=== PATIENT | male | born 1980 | race Hispanic/Latino ===

== ENCOUNTER 2019-10-22 09:08 | Emergency (ER) | payer SELFPAY ==
[2019-10-22] MEDS ORDERED: FAMCICLOVIR250 MG PO (09:47)
[2019-10-22 10:13] VITALS: BP 175/120
== END 2019-10-22 10:13 | disposition home or self-care (01) | DRG 728 ==
LOC: ED 09:08
DX: A60.01 Herpesviral infection of penis (principal)

== ENCOUNTER 2022-09-10 09:22 | Inpatient (IN) | payer SELFPAY ==
[2022-09-10] VITALS (18 sets, daily range): BP systolic 131–171; BP diastolic 80–102
[~2022-09-10] VITALS: Ht 172.7 cm; Wt 103.0 kg
[~2022-09-10 09:22] MED LIST: FAMCICLOVIR250 MG PO
--- NOTE | 2022-09-10 09:46 | NUR ---
PT TO ROOM WITH STEADY GAIT
--- NOTE | 2022-09-10 10:09 | NUR ---
PATIENT RESTING IN BED WATCHING TV. NO DISTRESS NOTED.
[2022-09-10 10:17] LABS: URINE BILIRUBIN - DIPSTICK NEGATIVE (NEGATIVE); URINE BLOOD DIPSTICK LARGE (NEGATIVE); URINE COLOR RED; URINE GLUCOSE - DIPSTICK NEGATIVE (NEGATIVE); URINE KETONE TRACE mg/dL (NEGATIVE); URINE LEUK ESTERASE TRACE (NEGATIVE); URINE PH 5.5 (4.5-8.0); URINE PROTEIN - DIPSTICK >=300 mg/dL (NEG-TRACE); URINE SPECIFIC GRAVITY 1.015; URINE UROBILINOGEN - DIPSTICK 0.2 E.U./dL (0.2)
[2022-09-10 10:31] LABS: URINE NITRITE - DIPSTICK POSITIVE (Negative)
[2022-09-10 10:34] LABS: URINE RBC >100 RBC/hpf (0-5); URINE WBC 0-2 WBC/hpf (0-5)
[2022-09-10 11:27] LABS: HEMATOCRIT 38.6 % (39.0-50.0); IMMATURE GRANULOCYTES 0.9 % (0.0-5.0); MEAN CELL VOLUME 87.1 fL CALC (80.0-100.0); MEAN CORPUSCULAR HGB 29.3 pG CALC (26.0-32.0); MEAN CORPUSCULAR HGB CONC 33.7 g/dL CAL (32.0-36.0); NEUT# 14.5 thou/uL (1.82-7.42); RED BLOOD COUNT 4.43 mill/uL (4.70-6.10); RED CELL DISTRI WIDTH 13.6 % (11.5-15.5)
[2022-09-10 11:55] LABS: ALBUMIN 4.3 g/dL (3.2-5.0); ALKALINE PHOSPHATASE 104 u/l (38-126); ANION GAP 29 (6-22 (CALC)); BILIRUBIN, TOTAL 0.6 mg/dL (0.0-1.4); CARBON DIOXIDE 11 mmol/l (22-30); CHLORIDE 95 mmol/l (95-108); LIPASE 160 u/l (23-300); POTASSIUM 3.8 mmol/l (3.5-5.1); SGOT/AST 13 u/l (17-59); SODIUM 132 mmol/l (137-146); TOTAL PROTEIN 7.4 g/dL (6.3-8.2)
[2022-09-10 12:02] LABS: BUN/CREATININE RATIO 7 (12-20 (CALC))
[2022-09-10 12:03] LABS: GFR FOR AFR.AMER. 4 ML/MIN (>=60 (CALC)); GFR OTHER RACES 4 ML/MIN (>=60 (CALC))
[2022-09-10 12:04] LABS: BUN 107 mg/dL (9-20)
--- NOTE | 2022-09-10 14:03 | NUR ---
Reassessment of patient completed. No distress noted.
--- NOTE | 2022-09-10 15:05 | NUR ---
JUST ARRIVED AND IS AT BEDSIDE. SHE REFUSES ADMITTING AND TRANSFERRING PATIENT UPSRAIRS UNTIL PROVIDER EXPLAINS REASON FOR ADMISSION. PROVDIER NOTIFIED
--- NOTE | 2022-09-10 15:49 | NUR ---
PT ARRIVED TO FLOOR VIA STRETCHER ACCOMPAINED BY ER STAFF AND . PT ALERT AND ORIENTED X4. NO APPARENT DISTRESS NOTED. PT SPEAKS JAPANESE AND [place]BOD[place]. AMBULATORY WITH STEADY GAIT. PT ABLE TO MAKE NEEDS KNOWN. C/O RUQ PAIN 10/10, HR SUSTAINING IN 120S, NOTIFIED DR. PANTOJA. DISCUSSED POC AND SAFETY PRECAUTIONS. PT VERBALIZED UNDERSTANDING. ORIENTED TO ROOM AND CALL LIGHT SYSTEM. CALL LIGHT WITHIN REACH. WILL CONTINUE TO MONITOR AND MEDICATE WHEN MEDICATIONS PROFILED.
--- NOTE | 2022-09-10 15:57 | NUR ---
BEDSIDE SHIFT REPORT GIVEN TO WHIT. PATIENT SETTLED IN BED WITH AT BEDSIDE.
--- NOTE | 2022-09-10 19:00 | NUR ---
RECEIVED REPORT FROM CARLOS AMADO.
--- NOTE | 2022-09-10 20:00 | NUR ---
PT SITTING ON BED HIGH FOWLERS; A&O X3. EVEN AND UNLABORED RESPIRATIONS: CLEAR LUNG SOUNDS UPON AUSCULTATION. TELEMETRY IN PLACE. IV SITE SAFETY AND PATENT. ACTIVE BOWEL SOUNDS X4 QUADRANTS. NO DISTRESS NOTED. EMPTIED URINAL CONTENTS: 175 MLS OF DARK [place], CLEAR URINE. SAFETY PRECAUTIONS IN PLACE WITH CALL LIGHT IN REACH.
[2022-09-11] VITALS (9 sets, daily range): BP systolic 108–155; BP diastolic 71–90
--- NOTE | 2022-09-11 | NUR ---
PT RESTING WITH EYES CLOSED. NO DISTRESS OR PAIN NOTED. IV SITE HEALTHY AND PATENT, INFUSING FLUIDS PER EMAR. SAFETY PRECAUTIONS IN PLACE WITH CALL LIGHT IN REACH.
--- NOTE | 2022-09-11 03:02 | NUR ---
PT C/O PAIN ON RUQ, LEVEL 8/10; ADMINISTERED PAIN MED PER EMAR. SAFETY PRECAUTIONS IN PLACE. CALL LIGHT IN REACH.
--- NOTE | 2022-09-11 03:55 | NUR ---
PT SITTING ON BED LOW FOWLERS. NO DISTRESS NOTED. SERVICE UNIT OPERATOR IN ROOM DRAWING BLOOD AT THIS TIME. IV SITE HEALTHY AND PATENT, INFUSING FLUIDS PER ORDER. SAFETY PRECAUTIONS IN PLACE WITH CALL LIGHT IN REACH.
[2022-09-11 05:52] LABS: MEAN CELL VOLUME 87.5 fL CALC (80.0-100.0); MEAN CORPUSCULAR HGB 29.4 pG CALC (26.0-32.0); MEAN CORPUSCULAR HGB CONC 33.6 g/dL CAL (32.0-36.0); RED BLOOD COUNT 3.67 mill/uL (4.70-6.10); RED CELL DISTRI WIDTH 13.6 % (11.5-15.5)
[2022-09-11 05:57] LABS: HEMATOCRIT 32.1 % (39.0-50.0); HEMOGLOBIN 10.8 g/dl (14.0-18.0)
[2022-09-11 06:18] LABS: ALBUMIN 3.9 g/dL (3.2-5.0); POTASSIUM 4.1 mmol/l (3.5-5.1)
[2022-09-11 06:31] LABS: CREATININE 16.1 mg/dL (0.7-1.3)
--- NOTE | 2022-09-11 07:26 | NUR ---
PT IS RESTING IN HIGH FOWLERS POSITION. A/OX3 ASSESSMENT AND VS COMPLETED. RESPIRATIONS UNLBAORED. IV SITE NOTED 20G RAC NS INFUSING AT 100. BOWEL SOUNDS ACTIVE.PT C/O PAIN TO BE MEDICATED. KIDNEY PROVIDER TO BE CALLED FOR UPDATE. PT IS AWARE NEED OF DIALYSIS. ALL SAFETY PRECAUTIONS IN PLACE CALL LIGHT IN REACH.
--- NOTE | 2022-09-11 12:00 | NUR ---
PT RESTING IN HIGH FOWLERS POSITION. PT C/O PAIN MEDICATION PROVIDED FOR PT.
--- NOTE | 2022-09-11 16:11 | NUR ---
PT RESTING IN HIGH FOWLERS POSITION. PT DENIES ADDITIONAL NEEDS OTHER THAN PAIN MANAGEMENT.
--- NOTE | 2022-09-11 19:00 | NUR ---
RECEIVED REPORT FROM TIMOTEO GOSS.
--- NOTE | 2022-09-11 20:00 | NUR ---
PT SITTING ON BED HIGH FOWLERS: A&O X3. VISITORS X2 AT BEDSIDE. EVEN AND UNLABORED RESPIRATIONS; CLEAR LUNG SOUNDS UPON AUSCULTATION. TELEMETRY IN PLACE WITH LAST READING ST-104. ACTIVE BOWEL SOUNDS TO RUQ, RLQ; HYPOACTIVE TO LUQ,LLQ. IV SITE HEALTHY AND PATENT. PT DENIES PAIN AT THIS TIME. SAFETY PRECAUTIONS IN PLACE WITH CALL LIGHT IN REACH.
[2022-09-12] VITALS: BP 130/80
--- NOTE | 2022-09-12 | NUR ---
PT RESTING WITH EYES CLOSED. NO DISTRESS NOTED. IV SITE HEALTHY AND PATENT, INFUSING FLUIDS PER ORDER. SAFETY PRECAUTIONS IN PLACE WITH CALL LIGHT IN REACH.
--- NOTE | 2022-09-12 03:36 | NUR ---
PT SITTING ON BED LOW FOWLERS POSITION WATCHING TV. NO DISTRESS NOTED. PT DENIES PAIN AT THIS TIME. EMPTIED URINAL CONTENTS: 200 MLS OF BLOODY URINE. PT DENIES PAIN ON URINATION. HANGING NEW BAG OF FLUIDS, IV SITE HEALTHY AND PATENT. SAFETY PRECAUTIONS IN PLACE WITH CALL LIGHT IN REACH.
[2022-09-12 04:00] VITALS: BP 150/89
[2022-09-12 04:58] VITALS: BP 150/89
[2022-09-12 05:51] LABS: HEMATOCRIT 29.8 % (39.0-50.0); HEMOGLOBIN 10.1 g/dl (14.0-18.0); MEAN CELL VOLUME 87.4 fL CALC (80.0-100.0); MEAN CORPUSCULAR HGB 29.6 pG CALC (26.0-32.0); MEAN CORPUSCULAR HGB CONC 33.9 g/dL CAL (32.0-36.0); RED BLOOD COUNT 3.41 mill/uL (4.70-6.10); RED CELL DISTRI WIDTH 13.7 % (11.5-15.5)
[2022-09-12 06:07] LABS: POTASSIUM 3.8 mmol/l (3.5-5.1)
[2022-09-12 06:29] LABS: CREATININE 15.1 mg/dL (0.7-1.3)
[2022-09-12 07:01] VITALS: BP 117/67
--- NOTE | 2022-09-12 08:00 | NUR ---
RECEIVED REPORT FROM [employer]DER[employer]WICH HAND. BRYNN Corado&[id number], PT IS ABLE TO MAKE NEEDS KNOWN. ASSESSMENT COMPLETED. THERE IS NO SIGNS OF EDEMA PRESENT AT THIS TIME. PT IS ON ROOM AIR. PT RESTING IN BED IN A LOW SEMI-JESSICA'S POSITION. NO SINGS OF DISTRESS NOTED NOR VERBALIZED AT THIS TIME.
--- NOTE | 2022-09-12 08:25 | NUR ---
Dr. Recio notified patient peg tube feeding residual this morning of 50ml. Orders recieved to hold tube feeding for now.
[2022-09-12 10:58] VITALS: BP 124/70
[2022-09-12] MEDS ORDERED: PHOSLO667 MG PO (11:56)
[2022-09-12] MEDS ORDERED: AMLODIPINE BESYL5 MG PO (11:56)
[2022-09-12] MEDS ORDERED: SODIUM BICAR650 MG PO (11:56)
[2022-09-12] MEDS ORDERED: OMNICEF300 MG PO (12:00)
--- NOTE | 2022-09-12 12:00 | NUR ---
PATIENT RESTING IN BED IN SEMI-JESSICA'S POSITION, AWAKE WATCHING TV. PATIENT DENIES AY DISCOMFORT AT THIS TIME. PT ASKED FOR HIS LABS TO PRINTED FOR HIM BEFORE HE WAS D/C, WILL PRINT THEM WITH D/C PAPER WORK.
--- NOTE | 2022-09-12 14:12 | NUR ---
Discharge instructions given. Patient verbalizes understanding of same. Discharged in stable condition via Ambulatory to Home with staff. All belongings sent with pt.
== END 2022-09-12 14:12 | disposition home or self-care (01) | DRG 683 ==
LOC: ED 09:22 → ED-I 11:08 → ED 11:08 → ED-I 13:17 → ED 13:30 → MS2 13:31
PROVIDERS: Emergency Medicine; Internal Medicine Nephrology; ADMIT Internal Medicine; ATTEND Internal Medicine
DX: N17.9 Acute kidney failure, unspecified (principal); E87.1 Hypo-osmolality and hyponatremia; Q61.2 Polycystic kidney, adult type; E87.20 Acidosis, unspecified; I12.0 Hypertensive chronic kidney disease with stage 5 chronic kidney disease or end stage renal disease; N18.5 Chronic kidney disease, stage 5; E86.9 Volume depletion, unspecified; N25.81 Secondary hyperparathyroidism of renal origin; E83.51 Hypocalcemia

== ENCOUNTER 2023-06-15 07:32 | Inpatient (IN) | payer SELFPAY ==
[~2023-06-15] VITALS: Ht 172.7 cm; Wt 90.6 kg
[2023-06-15] VITALS (22 sets, daily range): BP systolic 105–143; BP diastolic 66–93
[~2023-06-15 07:32] MED LIST changes: +AMLODIPINE BESYL5 MG PO; +OMNICEF300 MG PO; +PHOSLO667 MG PO; +SODIUM BICAR650 MG PO
[2023-06-15 08:20] LABS: BASO% 0.2 % (0-3); EOS% 0.1 % (0-8); HEMATOCRIT 31.6 % (39.0-50.0); HEMOGLOBIN 10.5 g/dl (14.0-18.0); IMMATURE GRANULOCYTES 0.7 % (0.0-5.0); LYMPH% 4.8 % (15-41); MEAN CELL VOLUME 83.2 fL CALC (80.0-100.0); MEAN CORPUSCULAR HGB 27.6 pG CALC (26.0-32.0); MEAN CORPUSCULAR HGB CONC 33.2 g/dL CAL (32.0-36.0); MONO% 5.1 % (2-13); NEUT# 10.24 thou/uL (1.82-7.42); NEUT% 89.1 % (42-76); RED BLOOD COUNT 3.8 mill/uL (4.70-6.10); RED CELL DISTRI WIDTH 13.9 % (11.5-15.5)
[2023-06-15 08:26] LABS: BILIRUBIN, TOTAL 0.5 mg/dL (0.2-1.3); POTASSIUM 3.4 mmol/l (3.5-5.1); TOTAL PROTEIN 8.4 g/dL (6.3-8.2)
[2023-06-15 08:36] LABS: ALBUMIN 4.5 g/dL (3.2-5.0); CREATININE 19.8 mg/dL (0.7-1.3)
[2023-06-15 09:34] LABS: URINE BLOOD DIPSTICK Large (NEGATIVE); URINE GLUCOSE - DIPSTICK 100 mg/dL (NEGATIVE); URINE KETONE 15 mg/dL (NEGATIVE); URINE LEUK ESTERASE Trace (NEGATIVE); URINE NITRITE - DIPSTICK Negative (Negative); URINE PH 5.5 (4.5-8.0); URINE PROTEIN - DIPSTICK >=300 mg/dL (NEG-TRACE); URINE SPECIFIC GRAVITY 1.015; URINE UROBILINOGEN - DIPSTICK 0.2 E.U./dL (0.2)
[2023-06-15 09:35] LABS: URINE COLOR Red; URINE RBC TNTC RBC/hpf (0-5)
[2023-06-15 09:37] LABS: URINE BACTERIA FEW hpf
[2023-06-16] VITALS (10 sets, daily range): BP systolic 118–137; BP diastolic 78–94
[2023-06-16 05:31] LABS: POTASSIUM 3.6 mmol/l (3.5-5.1)
[2023-06-16 05:42] LABS: CREATININE 19.3 mg/dL (0.7-1.3)
[2023-06-16 14:39] LABS: ALBUMIN 4.1 g/dL (3.2-5.0); BILIRUBIN, TOTAL 0.5 mg/dL (0.2-1.3); POTASSIUM 3.2 mmol/l (3.5-5.1)
[2023-06-16 14:52] LABS: CREATININE 18.6 mg/dL (0.7-1.3)
[2023-06-17 00:08] VITALS: BP 137/85
[2023-06-17 00:23] VITALS: BP 137/85
[2023-06-17 04:24] VITALS: BP 143/88
[2023-06-17 04:52] VITALS: BP 143/88
[2023-06-17 06:20] LABS: BASO% 0.5 % (0-3); EOS% 1.6 % (0-8); HEMATOCRIT 31.5 % (39.0-50.0); HEMOGLOBIN 10.4 g/dl (14.0-18.0); IMMATURE GRANULOCYTES 0.2 % (0.0-5.0); MEAN CELL VOLUME 83.1 fL CALC (80.0-100.0); MEAN CORPUSCULAR HGB 27.4 pG CALC (26.0-32.0); MONO% 8.3 % (2-13); NEUT# 7.12 thou/uL (1.82-7.42); NEUT% 74.4 % (42-76); RED BLOOD COUNT 3.79 mill/uL (4.70-6.10); RED CELL DISTRI WIDTH 13.9 % (11.5-15.5)
[2023-06-17 06:27] LABS: ALBUMIN 3.9 g/dL (3.2-5.0)
[2023-06-17 06:28] LABS: BILIRUBIN, TOTAL 0.5 mg/dL (0.2-1.3); MAGNESIUM 2.2 mg/dL (1.6-2.3); TOTAL PROTEIN 6.8 g/dL (6.3-8.2)
[2023-06-17 07:05] LABS: CREATININE 18.2 mg/dL (0.7-1.3)
[2023-06-17 07:06] LABS: CREATININE 18.3 mg/dL (0.7-1.3)
[2023-06-17 07:32] VITALS: BP 136/78
[2023-06-17] MEDS ORDERED: ANTACID750 M1 PO (13:07)
[2023-06-17] MEDS ORDERED: SODIUM BICAR650 MG PO (13:07)
[2023-06-17] MEDS ORDERED: PHOSLO667 MG PO (13:07)
[2023-06-17] MEDS ORDERED: KLOR-CON M2020 MEQ PO (13:07)
[2023-06-17 13:35] VITALS: BP 132/70
== END 2023-06-17 15:10 | disposition home or self-care (01) | DRG 683 ==
LOC: ED 07:32 → ED-I 10:20 → ED 10:47 → MS2 10:48
PROVIDERS: Family Medicine; Internal Medicine Nephrology; Nurse Practitioner Family; ADMIT Student in an Organized Health Care Education/Training Program; ATTEND Student in an Organized Health Care Education/Training Program
DX: N17.9 Acute kidney failure, unspecified (principal); E87.1 Hypo-osmolality and hyponatremia; Q61.2 Polycystic kidney, adult type; E87.20 Acidosis, unspecified; N18.5 Chronic kidney disease, stage 5; R31.9 Hematuria, unspecified; D63.1 Anemia in chronic kidney disease; E87.6 Hypokalemia; E86.9 Volume depletion, unspecified; E83.51 Hypocalcemia; N25.81 Secondary hyperparathyroidism of renal origin; I10 Essential (primary) hypertension; Z20.822 Contact with and (suspected) exposure to COVID-19